=== PATIENT | male | born 1960 | race Caucasian/White ===

== ENCOUNTER → 2016-12-31 | Outpatient (REF) | payer OTHER ==
[~2016-12-31] MED LIST: ALEV220T26 PO; AMLO10TA PO; CELE-19 PO; COMB0.2S OU; COUM2.5T11 PO; LYRI75CA PO; PERC5TAB6 PO; PRED10TA PO; PROT1TAB2 PO; TYLE325T5 PO
== END ==
LOC: M LAB REF 16:24
PROVIDERS: ATTEND Physician Assistant
DX: J02.9 Acute pharyngitis, unspecified (principal)

== ENCOUNTER → 2017-01-23 | Day surgery (SDC) | payer BC, OTHER ==
[~2017-01-23] VITALS: Ht 193 cm; Wt 144.2 kg
[~2017-01-23] MED LIST changes: +ACETAMINOPHEN 325 MG TAB PO PRN; +ACETYLCHOLINE OPHTH SOLN 1% 2ML As Ordered ONE; +AcetaZOLAMIDE 500 MG ER CAP PO ONE; +BALANCED SALT IRRIGATION SOLUTION 500ML BAG (FOR OR EYE MACHINE) As Ordered ONE; +CEFUROXIME 1MG/0.1ML INTRACAMERAL INJ As Ordered ONE; +CYCLOPENTOLATE 2% OPHTH SOLN OS ONE; +D5W/0.2% SODIUM CHLORIDE 1,000 ML IV SCH; +HEALON DUET (HEALON 10MG/ML 0.55ML & HEALON ENDOCOAT 30MG/ML 0.85ML) As Ordered ONE; +KETOROLAC 0.5% OPHTH SOLN XX ONE; +LIDOCAINE 1% SDV 5 ML VIAL As Ordered ONE; +LIDOCAINE 4% INJ 5 ML AMP OU ONE; +LR 1,000 ML IV SCH; +MIDAZOLAM INJ 2 MG/2 ML VIAL (J2250) As Ordered ONE; +OFLOXACIN 0.3 % (OCUFLOX) OPTH SOL 5ML OS ONE; +PHENYLEPHRINE 2.5% OPHTH SOL 2ML OS ONE; +POVIDONE-IODINE 5% OPHTH PREP SOL 30ML As Ordered ONE; +PRED5TA PO; +PROPARACAINE 0.5% OPHTH SOL 15ML XX PRN; +TRIMETHOBENZAMIDE 300 MG CAP PO PRN; +TROPICAMIDE 1% OPHTH SOLN 2 ML OS ONE; +fentaNYL 100 MCG/2 ML INJECTION (J3010) As Ordered ONE
[2017-01-23 11:00] VITALS: BP 155/86
--- NOTE | 2017-01-23 15:23 | RO ---
DATE OF PROCEDURE: 01/23/2017 PREPROCEDURE DIAGNOSES: Age-related nuclear cataract and open angle glaucoma, left eye. POSTPROCEDURE DIAGNOSES: Age-related nuclear cataract and open angle glaucoma, left eye. PROCEDURE: Phacoemulsification and posterior chamber intraocular lens implantation and endocyclophotocoagulation left eye. Lens used was an [id number], 16.5 Diopter. SURGEON: Saniya Crocker MD [address] [employer] COMMANDER: ANESTHESIA: Topical with sedation. DESCRIPTION OF PROCEDURE: The patient was prepped and draped in the usual fashion. A lid speculum was placed between the lids. The eye was fixated. A stab incision was made to the anterior chamber, and 1% non-preserved Lidocaine and viscoelastic was instilled into the anterior chamber of the eye. The eye was re-fixated. A 2.5 mm keratome was used to make a clear corneal temporal limbal incision. Capsulorrhexis was begun with a 30-gauge bent needle and then carried out in a circular fashion with capsulorrhexis forceps. The lens was hydrodissected, and then the nucleus was grooved in two meridians with the phacoemulsification. The nucleus was then cracked into four quadrants. Each quadrant was removed with the phacoemulsification unit. Any remaining cortex was removed with the I A unit. Capsular bag was refilled with viscoelastic. A posterior chamber intraocular lens was placed in the capsular bag without difficulty. Viscoelastic was again used to balloon up the iris of the capsular leaf and the endocyclophotocoagulation probe was introduced into the eye. THe ciliary processes were directly visualized and approximately 270 degrees of processes were lasered. Any remaining viscoelastic was removed with the I A unit. The wound was hydrated, and Miochol and cefuroxime were instilled into the anterior chamber. The patient tolerated the procedure well and went to the recovery room in stable condition.
== END | disposition home or self-care (01) ==
LOC: M SDC 08:25
PROVIDERS: ATTEND Ophthalmology
DX: H25.12 Age-related nuclear cataract, left eye (principal); H40.10X0 Unspecified open-angle glaucoma, stage unspecified; D86.9 Sarcoidosis, unspecified; G47.30 Sleep apnea, unspecified; Z79.52 Long term (current) use of systemic steroids; Z79.899 Other long term (current) drug therapy
CPT/HCPCS: 66711; 66984; J2250; J3010

== ENCOUNTER → 2017-03-29 | Outpatient (CLI) | payer BC, OTHER ==
[~2017-03-29] MED LIST changes: -ACETAMINOPHEN 325 MG TAB PO PRN; -ACETYLCHOLINE OPHTH SOLN 1% 2ML As Ordered ONE; -AcetaZOLAMIDE 500 MG ER CAP PO ONE; -BALANCED SALT IRRIGATION SOLUTION 500ML BAG (FOR OR EYE MACHINE) As Ordered ONE; -CEFUROXIME 1MG/0.1ML INTRACAMERAL INJ As Ordered ONE; -CYCLOPENTOLATE 2% OPHTH SOLN OS ONE; -D5W/0.2% SODIUM CHLORIDE 1,000 ML IV SCH; -HEALON DUET (HEALON 10MG/ML 0.55ML & HEALON ENDOCOAT 30MG/ML 0.85ML) As Ordered ONE; -KETOROLAC 0.5% OPHTH SOLN XX ONE; -LIDOCAINE 1% SDV 5 ML VIAL As Ordered ONE; -LIDOCAINE 4% INJ 5 ML AMP OU ONE; -LR 1,000 ML IV SCH; -MIDAZOLAM INJ 2 MG/2 ML VIAL (J2250) As Ordered ONE; -OFLOXACIN 0.3 % (OCUFLOX) OPTH SOL 5ML OS ONE; -PHENYLEPHRINE 2.5% OPHTH SOL 2ML OS ONE; -POVIDONE-IODINE 5% OPHTH PREP SOL 30ML As Ordered ONE; -PROPARACAINE 0.5% OPHTH SOL 15ML XX PRN; -TRIMETHOBENZAMIDE 300 MG CAP PO PRN; -TROPICAMIDE 1% OPHTH SOLN 2 ML OS ONE; -fentaNYL 100 MCG/2 ML INJECTION (J3010) As Ordered ONE
--- NOTE | 2017-03-29 09:51 | REP ---
Clinical: Nephrolithiasis. Technique: Two supine views of the abdomen and pelvis. Findings: No obvious urinary tract calcifications are appreciated. The bowel gas pattern is nonspecific. The skeletal structures are intact. No significant abnormal calcifications identified. Impression: No definite nephrolithiasis. Consider noncontrast CT of the abdomen and pelvis of necessary. Signed by Milan Taylor MD 03/29/2017 09:42 A
== END ==
LOC: M SMT 08:59
PROVIDERS: ATTEND Nurse Practitioner Women's Health
DX: N20.1 Calculus of ureter (principal)

== ENCOUNTER → 2017-04-09 | Outpatient (REF) | payer OTHER ==
[2017-04-20 00:07] LABS: Size 6x4x4 mm (.)
== END ==
LOC: M SMT 17:12
PROVIDERS: ATTEND Nurse Practitioner Women's Health
DX: N20.1 Calculus of ureter (principal)

== ENCOUNTER → 2018-11-19 | Outpatient (CLI) | payer BC, OTHER ==
[~2018-11-19] MED LIST changes: -CELE-19 PO; +CELE1CAP4 PO; -COUM2.5T11 PO; +COUM2.5T17 PO; +PERC5TAB12 PO; -PERC5TAB6 PO
--- NOTE | 2018-11-19 08:35 | REP ---
Chest x-ray: Two views. History: Cough. Comparison study: December 30, 2015. Findings: A the lungs are well inflated and clear. Pleural angles are sharp. There are degenerative changes in the thoracic spine. Heart is not enlarged. Linear fibrosis is noted in the left base unchanged. Pulmonary vasculature is not increased. Impression: No acute disease. Electronically Signed by Oliverio Saunders MD 11/19/2018 08:27 A
== END ==
LOC: M SMT 08:05
PROVIDERS: ATTEND Nurse Practitioner Adult Health
DX: R05 Cough (principal); D86.0 Sarcoidosis of lung

== ENCOUNTER → 2021-01-04 | Outpatient (CLI) | payer BC, OTHER ==
[~2021-01-04] MED LIST changes: +PANT40TA29 PO; +PLAV1TAB2 PO; +PRED-351 PO; -PRED10TA PO
== END ==
LOC: M LABSMTC 10:13
PROVIDERS: ATTEND Anesthesiology
DX: Z01.812 Encounter for preprocedural laboratory examination (principal); Z20.822 Contact with and (suspected) exposure to COVID-19

== ENCOUNTER 2021-01-09 10:20 | Day surgery (SDC) | payer BC, OTHER ==
[~2021-01-09] VITALS: Ht 193 cm; Wt 136.1 kg
[~2021-01-09 10:20] MED LIST changes: +LIDOCAINE 2% 100MG/5ML SDV (FOR ANES.) As Ordered ONE; +NS 1,000 ML IV ONE; +propofoL 200 MG/20 ML VIAL As Ordered ONE
[2021-01-09] MEDS ORDERED: fentaNYL 100 MCG/2 ML INJECTION (J3010) As Ordered ONE (11:41)
--- NOTE | 2021-01-09 11:53 | ROOR ---
Patient Name: Jose Antonio Calles Procedure Date: 01/09/2021 11:34 AM Date of : 1960 Age: 60 Room: [facility] Gender: Male Note Status: Finalized Procedure: Upper GI endoscopy Indications: Surveillance for malignancy due to personal history of Abdi's esophagus, Heartburn Providers: Kai PATIÑO MD Referring MD: Blake Calhoun MD Requesting Provider: Medicines: Monitored Anesthesia Care Complications: No immediate complications. Procedure: Pre-Anesthesia Assessment: - The heart rate, respiratory rate, oxygen saturations, blood pressure, adequacy of pulmonary ventilation, and response to care were monitored throughout the procedure. The Endoscope was introduced through the mouth, and advanced to the second part of duodenum. The upper GI endoscopy was accomplished without difficulty. The patient tolerated the procedure well. Findings: The Z-line was variable and was found 40 cm from the incisors. Biopsies were taken with a cold forceps for histology. The exam of the esophagus was otherwise normal. The entire examined stomach was normal. The examined duodenum was normal. Impression: - Z-line variable, 40 cm from the incisors. Biopsied. - Normal stomach. - Normal examined duodenum. Recommendation: - Continue present medications. - Follow an antireflux regimen. - Repeat upper endoscopy in 3 years for surveillance. Procedure Code(s): --- Professional --- 82888, Esophagogastroduodenoscopy, flexible, transoral; with biopsy, single or multiple Diagnosis Code(s): --- Professional --- K22.8, Other specified diseases of esophagus K22.70, Abdi's esophagus without dysplasia R12, Heartburn CPT copyright 2019 [employer]. All rights reserved. The codes documented in this report are preliminary and upon medical records coder review may be revised to meet current compliance requirements. Kai Patiño MD Kai PATIÑO MD 01/09/2021 11:54:19 AM Electronically signed by Kai PATIÑO MD Number of Addenda: 0 Note Initiated On: 01/09/2021 11:34 AM Estimated Blood Loss: Estimated blood loss: none.
[2021-01-09] MEDS ORDERED: ELEVIEW SUBMUCOSAL INJ 10ML AMP As Ordered ONE ×2 (11:58→12:09)
[2021-01-09] MEDS ORDERED: propofoL 200 MG/20 ML VIAL As Ordered ONE (12:03)
--- NOTE | 2021-01-09 12:28 | ROOR ---
Patient Name: Jose Antonio Calles Procedure Date: 01/09/2021 11:36 AM Date of : 1960 Age: 60 Room: [facility] Gender: Male Note Status: Finalized Procedure: Colonoscopy Indications: Screening for colorectal malignant neoplasm Providers: Kai PATIÑO MD Referring MD: Blake Calhoun MD Requesting Provider: Medicines: Monitored Anesthesia Care Complications: No immediate complications. Procedure: Pre-Anesthesia Assessment: - The heart rate, respiratory rate, oxygen saturations, blood pressure, adequacy of pulmonary ventilation, and response to care were monitored throughout the procedure. The Colonoscope was introduced through the anus and advanced to the terminal ileum, with identification of the appendiceal orifice and IC valve. The colonoscopy was performed without difficulty. The patient tolerated the procedure well. The quality of the bowel preparation was good. Findings: The perianal and digital rectal examinations were normal. A 12 mm polyp was found on the right lower lip of the ileocecal valve. The polyp was multi-lobulated. Area was successfully injected with 5 mL Eleview for a lift polypectomy. The polyp was removed with a hot snare. Resection was complete, but the polyp tissue was only partially retrieved. Two hemostatic clips were successfully placed. A 4 mm polyp was found in the cecum. The polyp was sessile. The polyp was removed with a cold snare. Resection and retrieval were complete. The exam was otherwise without abnormality on direct and retroflexion views. Impression: - One 12 mm polyp at the lower lip of thre ileocecal valve. Eleview injected for lift before piecemeal polypectomy. Removed with a hot snare. Complete resection. Clips were placed. - One 4 mm polyp in the cecum, removed with a cold snare. Resected and retrieved. - The examination was otherwise normal on direct and retroflexion views. Recommendation: - Await pathology results. - Telephone endoscopist for pathology results in 2 weeks. - If the pathology report reveals adenomatous tissue, then repeat the colonoscopy for surveillance after piecemeal polypectomy in 1 year. Procedure Code(s): --- Professional --- 86872, Colonoscopy, flexible; with removal of tumor(s), polyp(s), or other lesion(s) by snare technique 00072, Colonoscopy, flexible; with directed submucosal injection(s), any substance Diagnosis Code(s): --- Professional --- K63.5, Polyp of colon Z12.11, Encounter for screening for malignant neoplasm of colon CPT copyright 2019 [employer]. All rights reserved. The codes documented in this report are preliminary and upon orthopedic coder review may be revised to meet current compliance requirements. Kai Patiño MD Kai PATIÑO MD 01/09/2021 12:28:31 PM Electronically signed by Kai PATIÑO MD Number of Addenda: 0 Note Initiated On: 01/09/2021 11:36 AM Estimated Blood Loss: Estimated blood loss: none.
[2021-01-09 12:48] VITALS: BP 134/83
== END 2021-01-09 12:49 | disposition home or self-care (01) ==
LOC: M OPP 10:20
PROVIDERS: ATTEND Internal Medicine Gastroenterology
DX: Z12.11 Encounter for screening for malignant neoplasm of colon (principal); R12 Heartburn; K22.70 Barrett's esophagus without dysplasia; D12.0 Benign neoplasm of cecum; D13.0 Benign neoplasm of esophagus; K22.8 Other specified diseases of esophagus; K21.9 Gastro-esophageal reflux disease without esophagitis; D86.9 Sarcoidosis, unspecified; G47.30 Sleep apnea, unspecified; Z96.653 Presence of artificial knee joint, bilateral; Z88.8 Allergy status to other drugs, medicaments and biological substances; Z79.899 Other long term (current) drug therapy; Z82.49 Family history of ischemic heart disease and other diseases of the circulatory system; Z80.0 Family history of malignant neoplasm of digestive organs; Z83.6 Family history of other diseases of the respiratory system; Z80.51 Family history of malignant neoplasm of kidney; Z80.8 Family history of malignant neoplasm of other organs or systems
CPT/HCPCS: 43239; 45381; 45385; 88305; J3010

== ENCOUNTER → 2022-03-15 | Outpatient (CLI) | payer BC, OTHER ==
[~2022-03-15] MED LIST changes: -LIDOCAINE 2% 100MG/5ML SDV (FOR ANES.) As Ordered ONE; -NS 1,000 ML IV ONE; -propofoL 200 MG/20 ML VIAL As Ordered ONE
== END ==
LOC: M LABSMTC 10:23
PROVIDERS: ATTEND Anesthesiology
DX: Z01.812 Encounter for preprocedural laboratory examination (principal); Z20.822 Contact with and (suspected) exposure to COVID-19

== ENCOUNTER 2022-03-20 08:28 | Day surgery (SDC) | payer BC, OTHER ==
[~2022-03-20] VITALS: Ht 193 cm; Wt 123.4 kg
[~2022-03-20 08:28] MED LIST changes: +NS 1,000 ML IV ONE
[2022-03-20] MEDS ORDERED: propofoL 200 MG/20 ML VIAL As Ordered ONE (08:55)
[2022-03-20] MEDS ORDERED: LIDOCAINE 2% 100MG/5ML SDV (FOR ANES.) As Ordered ONE (08:55)
[2022-03-20 11:00] VITALS: BP 137/67
== END 2022-03-20 11:11 | disposition home or self-care (01) ==
LOC: M OPP 08:28
PROVIDERS: ATTEND Internal Medicine Gastroenterology
DX: D12.5 Benign neoplasm of sigmoid colon (principal); Z98.890 Other specified postprocedural states; Z86.010 Personal history of colon polyps; Z09 Encounter for follow-up examination after completed treatment for conditions other than malignant neoplasm; Z80.0 Family history of malignant neoplasm of digestive organs; Z80.51 Family history of malignant neoplasm of kidney; Z79.899 Other long term (current) drug therapy; Z88.8 Allergy status to other drugs, medicaments and biological substances

== ENCOUNTER 2022-04-09 09:59 | Inpatient (IN) | payer BC, OTHER ==
[~2022-04-09] VITALS: Ht 193 cm; Wt 125.8 kg
[~2022-04-09 09:59] MED LIST changes: -NS 1,000 ML IV ONE
[2022-04-09 11:54] LABS: HEMATOCRIT 45.5 % (42.0-52.0); HEMOGLOBIN 16.2 g/dl (13.5-17.5); LYMPH % 16.5 % (24.0-44.0); MEAN CORPUSCULAR HEMOGLOBIN 30.6 pg (27.0-33.0); MEAN CORPUSCULAR HGB CONC 35.6 g/dl (32.0-36.5); MONO % 9.1 % (2.0-8.0); PLATELET COUNT, AUTOMATED 163 10^3/uL (150-450); RED BLOOD COUNT 5.29 10^6/uL (4.30-6.10); WHITE BLOOD COUNT 4.2 10^3/uL (4.0-10.0)
[2022-04-09 11:55] LABS: BASO % 0.5 % (0.0-1.0); EOS # 0.1 10^3/uL (0.0-0.5); EOS % 1.7 % (0.0-3.0); LYMPH # 0.7 10^3/uL (1.5-5.0); MONO # 0.4 10^3/uL (0.0-0.8)
[2022-04-09 12:16] LABS: BLOOD UREA NITROGEN 13 MG/DL (7-18); CALCIUM LEVEL 9.3 MG/DL (8.8-10.2); CARBON DIOXIDE LEVEL 26 MEQ/L (21-32); CHLORIDE LEVEL 106 MEQ/L (98-107); CREATININE FOR GFR 0.75 MG/DL (0.70-1.30); GLOMERULAR FILTRATION RATE > 60.0 (>49); GLUCOSE, FASTING 249 MG/DL (70-100); POTASSIUM SERUM 4.7 MEQ/L (3.5-5.1); SODIUM LEVEL 138 MEQ/L (136-145)
[2022-04-09] MEDS ORDERED: ISOVUE-370 76% 100ML VIAL As Ordered ONE (12:18)
[2022-04-09 12:21] LABS: RSV AMPLIFICATION NEGATIVE (NEGATIVE)
[2022-04-09] MEDS ORDERED: HOME MED LIST COMPLETE! XX SCH (16:15)
[2022-04-09] MEDS ORDERED: ATORVASTATIN 20 MG TAB PO ONE (16:30)
[2022-04-09] MEDS ORDERED: ASPIRIN 81MG ENTERIC TABLET PO ONE (16:30)
[2022-04-09] MEDS ORDERED: GLUCAGON INJ 1MG VIAL SC PRN (17:05)
[2022-04-09] MEDS ORDERED: GLUCOSE 4GM CHEW TABLET PO PRN (17:05)
[2022-04-09] MEDS ORDERED: DEXTROSE 50% 50 ML SYRINGE IV PRN (17:05)
[2022-04-09] MEDS: INSULIN LISPRO (NovoLOG) PER UNIT SC SCH (17:30)
[2022-04-09] MEDS: **hydrALAZINE HCL** 25 MG TAB PO SCH (18:15)
[2022-04-09] MEDS ORDERED: INSULIN LISPRO (NovoLOG) PER UNIT SC SCH (21:00)
[2022-04-09 22:30] VITALS: BP 133/90
[2022-04-10 00:21] VITALS: BP 125/82
[2022-04-10 04:01] VITALS: BP 130/81
[2022-04-10] MEDS: **hydrALAZINE HCL** 25 MG TAB PO SCH ×3 (05:58→12:00)
[2022-04-10 07:56] VITALS: BP 144/82
[2022-04-10 08:29] LABS: BASO % 0.5 % (0.0-1.0); EOS # 0.1 10^3/uL (0.0-0.5); EOS % 2.4 % (0.0-3.0); HEMATOCRIT 43.6 % (42.0-52.0); HEMOGLOBIN 15.8 g/dl (13.5-17.5); LYMPH # 0.7 10^3/uL (1.5-5.0); LYMPH % 18.8 % (24.0-44.0); MEAN CORPUSCULAR HGB CONC 36.2 g/dl (32.0-36.5); MEAN CORPUSCULAR VOLUME 85.7 fl (80.0-96.0); MONO # 0.4 10^3/uL (0.0-0.8); MONO % 10.2 % (2.0-8.0); NEUTROPHILS # 2.5 10^3/uL (1.5-8.5); NEUTROPHILS % 67.8 % (36.0-66.0); PLATELET COUNT, AUTOMATED 148 10^3/uL (150-450); RED BLOOD COUNT 5.09 10^6/uL (4.30-6.10); WHITE BLOOD COUNT 3.7 10^3/uL (4.0-10.0)
[2022-04-10] MEDS: INSULIN LISPRO (NovoLOG) PER UNIT SC SCH ×2 (08:50→12:32)
[2022-04-10] MEDS ORDERED: PANTOPRAZOLE 40MG TAB (PROTONIX) PO SCH (09:00)
[2022-04-10] MEDS ORDERED: ATORVASTATIN 20 MG TAB PO SCH (09:00)
[2022-04-10] MEDS ORDERED: ENOXAPARIN 40MG/0.4ML SYRINGE (J1650 PER 10MG) SC SCH (09:00)
[2022-04-10] MEDS ORDERED: ASPIRIN 81MG ENTERIC TABLET PO SCH (09:00)
[2022-04-10 09:08] LABS: BLOOD UREA NITROGEN 14 MG/DL (7-18); CALCIUM LEVEL 9.2 MG/DL (8.8-10.2); CARBON DIOXIDE LEVEL 27 MEQ/L (21-32); CHLORIDE LEVEL 105 MEQ/L (98-107); CHOLESTEROL LEVEL 177 MG/DL (<200); CHOLESTEROL RISK RATIO 4.538 (<5); CREATININE FOR GFR 0.76 MG/DL (0.70-1.30); GLOMERULAR FILTRATION RATE > 60.0 (>49); GLUCOSE, FASTING 238 MG/DL (70-100); HDL CHOLESTEROL 39 MG/DL (>40); LDL CHOLESTEROL 112 MG/DL (<100); NON-HDL-C 138 MG/DL; POTASSIUM SERUM 4.2 MEQ/L (3.5-5.1); SODIUM LEVEL 138 MEQ/L (136-145); TRIGLYCERIDES LEVEL 131 MG/DL (<150)
[2022-04-10 10:39] LABS: HEMOGLOBIN A1c 10.3 %
[2022-04-10 12:00] VITALS: BP 135/95
[2022-04-10 12:08] VITALS: BP 135/95
[2022-04-10 14:47] LABS: MAGNESIUM LEVEL 1.9 MG/DL (1.8-2.4)
[2022-04-10] MEDS ORDERED: ATOR80TA59 PO (15:06)
[2022-04-10] MEDS ORDERED: XARE20TA PO (15:06)
[2022-04-10] MEDS ORDERED: ASPI-551 PO (15:06)
[2022-04-10 16:08] VITALS: BP 160/88
== END 2022-04-10 17:24 | disposition home or self-care (01) | DRG 45 ==
LOC: M ED 09:59 → M ED INP 15:43 → M PCU 22:36
PROVIDERS: ADMIT Internal Medicine Nephrology; ATTEND Internal Medicine Nephrology
DX: I63.81 Other cerebral infarction due to occlusion or stenosis of small artery (principal); I48.0 Paroxysmal atrial fibrillation; I10 Essential (primary) hypertension; E11.9 Type 2 diabetes mellitus without complications; Z20.822 Contact with and (suspected) exposure to COVID-19; R26.89 Other abnormalities of gait and mobility; Z79.899 Other long term (current) drug therapy; Z88.8 Allergy status to other drugs, medicaments and biological substances; K21.9 Gastro-esophageal reflux disease without esophagitis; D86.9 Sarcoidosis, unspecified; G47.33 Obstructive sleep apnea (adult) (pediatric); K22.70 Barrett's esophagus without dysplasia; H40.9 Unspecified glaucoma; Z98.41 Cataract extraction status, right eye; Z98.42 Cataract extraction status, left eye; Z96.653 Presence of artificial knee joint, bilateral; F17.220 Nicotine dependence, chewing tobacco, uncomplicated; R53.1 Weakness; R20.0 Anesthesia of skin

== ENCOUNTER → 2022-04-19 | Outpatient (CLI) | payer BC, OTHER ==
[~2022-04-19] MED LIST changes: +ASPI-226; +ASPI-551 PO; +ATOR80TA59 PO; +METF-838 PO; +TELM1TAB35; +VITA500075 PO; +XARE20TA PO
== END ==
LOC: M LABSMTC 10:56
PROVIDERS: ATTEND Anesthesiology
DX: Z01.818 Encounter for other preprocedural examination (principal); Z11.52 Encounter for screening for COVID-19

== ENCOUNTER 2022-04-25 12:46 | Day surgery (SDC) | payer BC, OTHER ==
[~2022-04-25] VITALS: Ht 193 cm; Wt 119.0 kg
[~2022-04-25 12:46] MED LIST changes: +ceFAZolin SOD 1 GM in D5W MINI-BAG PLUS 50 ML IV ONE; +ceFAZolin SOD 2 GM in IV 1 EA IV ONE
[2022-04-25] MEDS ORDERED: LR 1,000 ML IV SCH (13:55)
[2022-04-25] MEDS ORDERED: INSULIN LISPRO (NovoLOG) PER UNIT SC PRN (13:55)
[2022-04-25] MEDS ORDERED: LIDOCAINE 1% MDV 20ML VIAL As Ordered ONE (15:22)
[2022-04-25] MEDS ORDERED: propofoL 200 MG/20 ML VIAL As Ordered ONE (15:33)
[2022-04-25] MEDS ORDERED: LIDOCAINE 2% 100MG/5ML SDV (FOR ANES.) As Ordered ONE (15:33)
[2022-04-25] MEDS ORDERED: ONDANSETRON 4MG/2ML VIAL As Ordered ONE (15:33)
[2022-04-25] MEDS ORDERED: fentaNYL 100 MCG/2 ML INJECTION As Ordered ONE (15:34)
[2022-04-25] MEDS ORDERED: MIDAZOLAM INJ 2MG/2ML VIAL (J2250 PER 1MG) As Ordered ONE (15:34)
[2022-04-25] MEDS ORDERED: MUPIROCIN 2% OINT 22 GM TUBE As Ordered ONE (16:33)
[2022-04-25 17:10] VITALS: BP 123/52
== END 2022-04-25 17:13 | disposition home or self-care (01) ==
LOC: M SDC 12:46
PROVIDERS: ATTEND Internal Medicine Cardiovascular Disease
DX: I63.9 Cerebral infarction, unspecified (principal); I25.10 Atherosclerotic heart disease of native coronary artery without angina pectoris; I25.2 Old myocardial infarction; I48.91 Unspecified atrial fibrillation; I10 Essential (primary) hypertension; E11.9 Type 2 diabetes mellitus without complications; K21.9 Gastro-esophageal reflux disease without esophagitis; Z79.01 Long term (current) use of anticoagulants; Z79.82 Long term (current) use of aspirin; Z79.84 Long term (current) use of oral hypoglycemic drugs; Z79.899 Other long term (current) drug therapy; Z86.73 Personal history of transient ischemic attack (TIA), and cerebral infarction without residual deficits
CPT/HCPCS: 33285; 87426; C1764; J0690; J2250; J2405; J3010

== ENCOUNTER 2023-12-19 12:18 | Day surgery (SDC) | payer BC, OTHER ==
[~2023-12-19] VITALS: Ht 193 cm; Wt 122.7 kg
[~2023-12-19 12:18] MED LIST changes: +ALPR0.25 PO; -ASPI-226; +ASPI-226 PO; +CLOP75TA99 PO; +LOSA50TA28 PO; -PLAV1TAB2 PO; +TRUL10IN; -ceFAZolin SOD 1 GM in D5W MINI-BAG PLUS 50 ML IV ONE; -ceFAZolin SOD 2 GM in IV 1 EA IV ONE
[2023-12-19] MEDS ORDERED: LIDOCAINE 2% 100MG/5ML SDV (FOR ANES.) As Ordered ONE (12:32)
[2023-12-19] MEDS ORDERED: MIDAZOLAM INJ 2MG/2ML VIAL As Ordered ONE (12:32)
[2023-12-19] MEDS ORDERED: propofoL 200 MG/20 ML VIAL As Ordered ONE (12:32)
[2023-12-19] MEDS: ceFAZolin SOD 2 GM in IV 1 EA IV ONE (14:13)
[2023-12-19] MEDS: LIDOCAINE 1% SDV 30ML VIAL As Ordered ONE (14:20)
[2023-12-19 14:46] VITALS: BP 173/81; TEMP 97.1; O2SAT 98
== END 2023-12-19 14:55 | disposition home or self-care (01) ==
LOC: M SDC 12:18
PROVIDERS: ATTEND Internal Medicine Cardiovascular Disease
DX: Z45.09 Encounter for adjustment and management of other cardiac device (principal); I49.3 Ventricular premature depolarization; I44.0 Atrioventricular block, first degree; I11.9 Hypertensive heart disease without heart failure; I35.1 Nonrheumatic aortic (valve) insufficiency; I35.0 Nonrheumatic aortic (valve) stenosis; E78.2 Mixed hyperlipidemia; G47.33 Obstructive sleep apnea (adult) (pediatric); Z86.73 Personal history of transient ischemic attack (TIA), and cerebral infarction without residual deficits; Z79.899 Other long term (current) drug therapy
CPT/HCPCS: 33286; 93005; J0690; J2250

== ENCOUNTER → 2024-06-18 | Outpatient (CLI) | payer BC | LOC: M PLAIMG 07:19 | PROVIDERS: ATTEND Physician Assistant | DX: I48.0 Paroxysmal atrial fibrillation (principal); I35.1 Nonrheumatic aortic (valve) insufficiency; I34.0 Nonrheumatic mitral (valve) insufficiency ==

== ENCOUNTER 2025-09-20 07:08 | Day surgery (SDC) | payer MEDICARE, BC ==
[~2025-09-20] VITALS: Ht 193 cm; Wt 124.7 kg
[~2025-09-20 07:08] MED LIST changes: +AMLO-751 PO; -AMLO10TA PO; +ATEN25TA PO; +BRIM5DRO4; +CLOP75TA2 PO; +LIDOCAINE 2% 100 MG/5 ML SDV (FOR ANES.) As Ordered ONE; +LIPI20TA PO; +LOSA25TA13 PO; +ROSU20TA86 PO
[2025-09-20 08:28] VITALS: TEMP 98.2
[2025-09-20 08:44] VITALS: BP 143/76; O2SAT 98
== END 2025-09-20 08:49 | disposition home or self-care (01) ==
LOC: M OPP 07:08
PROVIDERS: ATTEND Internal Medicine Gastroenterology
DX: D12.2 Benign neoplasm of ascending colon (principal); K64.8 Other hemorrhoids; Z98.890 Other specified postprocedural states; Z86.0100 Personal history of colon polyps, unspecified; I48.91 Unspecified atrial fibrillation; Z86.73 Personal history of transient ischemic attack (TIA), and cerebral infarction without residual deficits; G47.30 Sleep apnea, unspecified; Z88.8 Allergy status to other drugs, medicaments and biological substances; Z79.82 Long term (current) use of aspirin; Z79.85 Long-term (current) use of injectable non-insulin antidiabetic drugs; Z79.899 Other long term (current) drug therapy